=== PATIENT | female | born 1970 | race Caucasian/White ===

== ENCOUNTER 2016-12-24 10:36 | Emergency (ER) | payer BC ==
[2016-12-24] MEDS ORDERED: BABY ASPIRIN 81 MG CHEW PO ONE (11:13)
[2016-12-24 11:36] LABS: BASOPHIL % 0.3 % (0.0-0.4); Eosinophil % 2.2 % (0.00-5.0); Granulocytes % 60.3 % (36.0-66.0); Lymphocytes % 28.2 % (24.0-44.0); Mean Cell Volume 85.2 fl (78-100); Mean Corpuscular Hemoglobin 26.8 pg (26-32); Mean Platelet Volume 10.5 fl (6-9.5); Platelet Count 288 K/mm3 (150-450); Red Blood Count 4.52 M/mm3 (4.1-5.4); Red Cell Distribution Width 14.9 % (11.5-14.0); White Blood Count 6.3 K/mm3 (4.0-10.5)
[2016-12-24] MEDS ORDERED: BABY ASPIRIN 81 MG CHEW ONE (11:42)
--- NOTE | 2016-12-24 11:44 | XRAY ---
Indication: Chest pain. Hypertension. Comparison: August 01, 2016. Portable chest again demonstrates normal heart, lungs, and bony thorax.
[2016-12-24 11:59] LABS: ALBUMIN 3.8 g/dL (3.4-5.0); ALKALINE PHOSPHATASE 60 U/L (46-116); ANION GAP 14.3 MEQ/L (5-15); BILIRUBIN,TOTAL < 0.1 mg/dL (0.2-1.0); BLOOD UREA NITROGEN 10 mg/dL (9-20); CHLORIDE 104 mEq/L (98-107); Carbon Dioxide 26.2 mEq/L (21-32); Glucose 76 MG/DL (70-110); Potassium 3.8 mEq/L (3.5-5.1); SGOT/AST 21 U/L (15-37); SGPT/ALT 31 U/L (12-78); SODIUM 141 mEq/L (136-145); Total Protein 7.6 gm/dL (6.4-8.2)
--- NOTE | 2016-12-24 11:59 | ERPHSYRPT ---
- History of Present Illness Time Seen by Provider: 12/24/16 11:08 Source: patient Patient Subjective Stated Complaint: high blood pressure at work. hasn't felt good today Triage Nursing Assessment: ambulated to room per self. skin w/d, color normal, resp easy. having slight tightness through shoulders intermittently. denies sob. Physician History: CC: heart racing HX: 46 y/o patient of Dr Avendano. She was at work at [employer]. She felt heart racing, malaise, nausea. They checked her BP and said it was high so she came to ER. She reports recent fatigue, MAJOR, pain in chest tightness and to the shoulder blade and neck today. She has some nausea. No hx of heart trouble. Had stress remotely. Had recent normal thyroid testing. 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 Severity: mild, moderate Allergies/Adverse Reactions: No Known Drug Allergies Allergy (Verified 12/24/16 10:59) Home Medications: Ibuprofen 200 mg [Motrin 200 mg] 600 mg PO UD 08/01/16 [History] Lisinopril 10 mg [Zestril 10 MG] 10 mg PO DAILY 08/01/16 [History] Buspirone HCl 5 mg [Buspar 5 mg] 5 mg PO BID 12/24/16 [History] Hx Tetanus, Diphtheria Vaccination/Date Given: No Hx Influenza Vaccination/Date Given: No Hx Pneumococcal Vaccination/Date Given: No - Review of Systems Constitutional: Fatigue, Malaise, Weakness, No Fever, No Chills Eyes: No Symptoms Ears, Nose, & Throat: No Symptoms Respiratory: Dyspnea on Exertion (MAJOR), No Cough, No Dyspnea Cardiac: Chest Pain (tightness), No Edema, No Palpitations, No Syncope Abdominal/Gastrointestinal: Nausea, No Abdominal Pain, No Vomiting Musculoskeletal: No Back Pain, No Neck Pain Skin: No Rash Neurological: No Focal Weakness, No Headache, No Parasthesia All Other Systems: Reviewed and Negative - Past Medical History Pertinent Past Medical History: Yes Cardiac History: Hypertension - Past Surgical History Past Surgical History: Yes Gastrointestinal: Cholecystectomy Female Surgical History: Section, Tubal Ligation - Social History Smoking Status: Former smoker Exposure to second hand smoke: No Drug Use: none Patient Lives Alone: No - Female History Hx Last Menstrual Period: two weeks ago - Nursing Vital Signs Nursing Vital Signs: Initial Vital Signs Temperature 97.5 F Temperature Source Oral Pulse Rate 74 Respiratory Rate 22 Blood Pressure [] 129/76 Pain Intensity 0 - Physical Exam General Appearance: alert Eye Exam: PERRL/EOMI Ears, Nose, Throat Exam: normal ENT inspection, moist mucous membranes Neck Exam: normal inspection, non-tender, supple Respiratory Exam: normal breath sounds, lungs clear Cardiovascular Exam: regular rate/rhythm, No murmur Gastrointestinal/Abdomen Exam: soft, No tenderness, No distention Back Exam: normal inspection Extremity Exam: normal inspection, normal range of motion Neurologic Exam: alert, oriented x 3, cooperative, sensation nml, No motor deficits Skin Exam: warm, dry, No rash SpO2 Interpretation: normal SpO2: 96 Oxygen Delivery: Room Air - Course Nursing assessment & vital signs reviewed: Yes EKG Interpreted by Me: RATE (76), Sinus Rhythm, NORMAL AXIS, NORMAL INTERVALS, NORMAL QRS, NORMAL ST-T - Radiology Exams cxr X-ray Interpretation: Discussed w/ radiologist, Negative Ordered Tests: Active Orders 24 hr Category Date Time Status Principle Software Engineer STAT Care 12/24/16 11:13 Active EKG-ER Only STAT Care 12/24/16 11:13 Active IV Insertion STAT Care 12/24/16 11:13 Active Pulse Oximetry (ED) STAT Care 12/24/16 11:13 Active CHEST 1 VIEW (PORTABLE) Stat Exams 12/24/16 11:14 Completed CBC W DIFF Stat Lab 12/24/16 11:29 Completed CMP Stat Lab 12/24/16 11:29 Completed D-DIMER QUANTITATION Stat Lab 12/24/16 11:29 Completed NT PRO BNP Stat Lab 12/24/16 11:29 Completed TROPONIN Q3H Lab 12/24/16 11:15 Completed TROPONIN Q3H Lab 12/24/16 14:38 Completed TROPONIN Q3H Lab 12/24/16 17:15 Ordered TROPONIN Q3H Lab 12/24/16 20:15 Ordered TROPONIN Q3H Lab 12/24/16 23:15 Ordered Medication Summary Discontinued Medications Generic Name Dose Route Start Last Admin Trade Name Freq PRN Reason Stop Dose Admin Aspirin 162 mg 12/24/16 11:13 12/24/16 11:43 Baby Aspirin 81 Mg Chew PO 12/24/16 11:14 162 mg STAT ONE Administration Aspirin Confirm 12/24/16 11:42 Baby Aspirin 81 Mg Chew Administered 12/24/16 11:43 Dose 162 mg .ROUTE .STK-MED ONE Lab/Rad Data: Laboratory Result Diagrams 12/24/16 11:29 12/24/16 11:29 Laboratory Results 12/24/16 12/24/16 12/24/16 Range/Units 14:38 11:29 11:29 WBC (4.0-10.5) K/mm3 RBC (4.1-5.4) M/mm3 Hgb (12.0-16.0) gm/dl Hct (35-47) % MCV (78-100) fl MCH (26-32) pg MCHC (32-36) g/dl RDW (11.5-14.0) % Plt Count (150-450) K/mm3 MPV (6-9.5) fl Gran % (36.0-66.0) % Lymphocytes % (24.0-44.0) % Monocytes % (0.0-12.0) % Eosinophils % (0.00-5.0) % Basophils % (0.0-0.4) % Basophils # (0-0.4) D-Dimer 0.259 (0.00-0.49) mg/L Sodium 141 (136-145) mEq/L Potassium 3.8 (3.5-5.1) mEq/L Chloride 104 (98-107) mEq/L Carbon Dioxide 26.2 (21-32) mEq/L Anion Gap 14.3 (5-15) MEQ/L BUN 10 (9-20) mg/dL Creatinine 0.59 (0.55-1.30) mg/dl Estimated GFR > 60 ML/MIN Glucose 76 (70-110) MG/DL Calcium 8.7 (8.5-10.1) mg/dL Total Bilirubin < 0.1 L (0.2-1.0) mg/dL AST 21 (15-37) U/L ALT 31 (12-78) U/L Alkaline Phosphatase 60 (46-116) U/L Troponin I < 0.017 (0.000-0.056) ng/ml NT-Pro-B Natriuret Pep 101 (0-125) pg/ml Serum Total Protein 7.6 (6.4-8.2) gm/dL Albumin 3.8 (3.4-5.0) g/dL 12/24/16 12/24/16 Range/Units 11:29 11:15 WBC 6.3 (4.0-10.5) K/mm3 RBC 4.52 (4.1-5.4) M/mm3 Hgb 12.1 (12.0-16.0) gm/dl Hct 38.5 (35-47) % MCV 85.2 (78-100) fl MCH 26.8 (26-32) pg MCHC 31.4 L (32-36) g/dl RDW 14.9 H (11.5-14.0) % Plt Count 288 (150-450) K/mm3 MPV 10.5 H (6-9.5) fl Gran % 60.3 (36.0-66.0) % Lymphocytes % 28.2 (24.0-44.0) % Monocytes % 9.0 (0.0-12.0) % Eosinophils % 2.2 (0.00-5.0) % Basophils % 0.3 (0.0-0.4) % Basophils # 0.02 (0-0.4) D-Dimer (0.00-0.49) mg/L Sodium (136-145) mEq/L Potassium (3.5-5.1) mEq/L Chloride (98-107) mEq/L Carbon Dioxide (21-32) mEq/L Anion Gap (5-15) MEQ/L BUN (9-20) mg/dL Creatinine (0.55-1.30) mg/dl Estimated GFR ML/MIN Glucose (70-110) MG/DL Calcium (8.5-10.1) mg/dL Total Bilirubin (0.2-1.0) mg/dL AST (15-37) U/L ALT (12-78) U/L Alkaline Phosphatase (46-116) U/L Troponin I < 0.017 (0.000-0.056) ng/ml NT-Pro-B Natriuret Pep (0-125) pg/ml Serum Total Protein (6.4-8.2) gm/dL Albumin (3.4-5.0) g/dL - Progress Progress Note: 12/24/16 13:29 Pt stable. Feels better. BP better. She will get 3 hour troponin. Labs reassuring. Will follow up with Dr Epps. 12/24/16 15:19 Pt stable. 2nd troponin negative. Appt with Dr Avendano tomorrow. She is ready to go home. Will release with instructions. Counseled pt/family regarding: lab results, diagnosis, need for follow-up, rad results - Departure Time of Disposition: 15:19 Departure Disposition: Home Clinical Impression: Chest tightness Hypertension Qualifiers: Hypertension type: essential hypertension Qualified Code(s): I10 - Essential ( primary) hypertension Condition: Stable Critical Care Time: No Referrals: NICHOLAS EPPS [Primary Care Provider] - (tomorrow at 11:30AM ) Instructions: Hypertension, Atypical Chest Pain Additional Instructions: Rest today. See Dr Loya tomorrow at 11:30. Return for problems or concerns.
[2016-12-24 15:36] VITALS: BP 137/77; PULSE 88; O2SAT 98
== END 2016-12-24 15:35 | disposition home or self-care (01) ==
LOC: ED 10:36
DX: I10 Essential (primary) hypertension (principal); R07.89 Other chest pain; R11.0 Nausea; R53.83 Other fatigue
CPT/HCPCS: 36000; 36415; 71010; 80053; 83880; 84484; 85025; 85379; 93005; 93041; 99284